=== PATIENT | female | born 1970 | race Caucasian/White ===

== ENCOUNTER → 2017-11-22 | Outpatient (REF) | payer BC, OTHER ==
[2017-11-22 14:38] LABS: VITAMIN B12 LEVEL 487 PG/ML (247-911)
== END ==
LOC: M LABNEURO 12:18
DX: E53.8 Deficiency of other specified B group vitamins (principal)
CPT/HCPCS: 82607

== ENCOUNTER 2018-12-03 14:56 | Inpatient (IN) | payer BC, OTHER ==
[2018-12-03 16:30] VITALS: BP 111/63
[2018-12-03] MEDS ORDERED: MOM 30ML SUSPENSION UDC PO PRN (17:45)
[2018-12-03] MEDS ORDERED: ACETAMINOPHEN TAB 650MG DOSE (2X325MG) PO PRN (17:45)
[2018-12-03] MEDS ORDERED: BISACODYL 10 MG SUPP PR PRN (17:45)
[2018-12-03] MEDS ORDERED: CYAN1000VL IM (18:31)
[2018-12-03] MEDS ORDERED: SUMA50TA2 PO (18:31)
[2018-12-03] MEDS ORDERED: LEVO25TA5 PO (18:31)
[2018-12-03] MEDS ORDERED: ALLE180T33 PO (18:31)
[2018-12-03] MEDS ORDERED: TIZA2CAP PO (18:31)
[2018-12-03] MEDS ORDERED: ALEN70TA74 PO (18:31)
[2018-12-03] MEDS ORDERED: ASPI81CH33 PO (18:38)
[2018-12-03] MEDS ORDERED: CLOP75TA2 PO (18:38)
[2018-12-03] MEDS ORDERED: [UNRECOGNIZED DRUG - CODE] AS (18:38)
[2018-12-03] MEDS ORDERED: ATOR80TA59 PO (18:38)
[2018-12-03] MEDS ORDERED: ACET1TAB55 PO (18:38)
[2018-12-03] MEDS ORDERED: AUGM875T28 PO (18:38)
[2018-12-03 20:00] VITALS: BP 106/57
[2018-12-03] MEDS: ATORVASTATIN 20 MG TAB PO SCH (20:51)
[2018-12-03] MEDS: ENOXAPARIN 40 MG/0.4 ML SYRINGE (J1650) SC SCH (20:51)
[2018-12-03] MEDS: DOCUSATE SODIUM 100 MG CAP PO SCH (20:51)
[2018-12-03] MEDS: AUGMENTIN 875 MG TAB GT SCH (20:51)
[2018-12-03] MEDS: CIPROFLOXACIN 0.3% OPHTH SOLN 2.5ML XX SCH (20:52)
[2018-12-03] MEDS: PANTOPRAZOLE 40MG TAB (PROTONIX) PO SCH (20:54)
[2018-12-04 06:00] VITALS: BP 114/52
[2018-12-04] MEDS ORDERED: LEVOTHYROXINE 25MCG TABLET (0.025MG) PO SCH (06:00)
[2018-12-04 07:14] LABS: BASO % 0.3 % (0.0-1.0); EOS # 0.2 10^3/uL (0.0-0.50); HEMATOCRIT 36.1 % (36.0-47.0); HEMOGLOBIN 11.6 g/dl (12.0-15.5); LYMPH # 1.3 10^3/uL (1.5-4.5); MEAN CORPUSCULAR HEMOGLOBIN 30.6 pg (27.0-33.0); MEAN CORPUSCULAR HGB CONC 32.1 g/dl (32.0-36.5); MEAN CORPUSCULAR VOLUME 95.3 fl (80.0-96.0); MONO # 0.7 10^3/uL (0.0-0.8); MONO % 10.6 % (0.0-5.0); NEUTROPHILS # 4.1 10^3/uL (1.8-7.7); NEUTROPHILS % 64.6 % (36.0-66.0); PLATELET COUNT, AUTOMATED 267 10^3/uL (150-450); RED BLOOD COUNT 3.79 10^6/uL (4.00-5.40); WHITE BLOOD COUNT 6.3 10^3/uL (4.0-10.0)
[2018-12-04 07:38] LABS: ALBUMIN 3.2 GM/DL (3.2-5.2); ALT/SGPT 70 U/L (12-78); BILIRUBIN,TOTAL 0.3 MG/DL (0.2-1.0); BLOOD UREA NITROGEN 13 MG/DL (7-18); CALCIUM LEVEL 8.7 MG/DL (8.5-10.1); CARBON DIOXIDE LEVEL 30 MEQ/L (21-32); CHLORIDE LEVEL 107 MEQ/L (98-107); CREATININE FOR GFR 0.64 MG/DL (0.55-1.30); GLOMERULAR FILTRATION RATE > 60.0 (>58); GLUCOSE, FASTING 84 MG/DL (70-100); POTASSIUM SERUM 3.9 MEQ/L (3.5-5.1); SODIUM LEVEL 143 MEQ/L (136-145); TOTAL PROTEIN 6.3 GM/DL (6.4-8.2)
[2018-12-04 08:20] LABS: APPEARANCE, URINE CLEAR (CLEAR); BACTERIA, URINE AUTO NEGATIVE (NEGATIVE); BILIRUBIN, URINE AUTO NEGATIVE (NEGATIVE); BLOOD, URINE BLOOD NEGATIVE (NEGATIVE); COLOR, URINE YELLOW (YELLOW); GLUCOSE, URINE (UA) AUTO NEGATIVE (NEGATIVE); KETONE, URINE AUTO NEGATIVE (NEGATIVE); LEUKOCYTE ESTERASE, URINE AUTO NEGATIVE (NEGATIVE); MUCUS, URINE SMALL (NEGATIVE); NITRITE, URINE AUTO NEGATIVE (NEGATIVE); PROTEIN, URINE AUTO NEGATIVE (NEGATIVE); RBC, URINE AUTO 0 /HPF (0-3); SPECIFIC GRAVITY URINE AUTO 1.014 (1.002-1.035); SQUAMOUS EPITHELIAL CELL UR AU 0 /HPF (0-6); WBC, URINE AUTO 1 /HPF (0-3)
[2018-12-04] MEDS: ASPIRIN 81 MG CHEW TABLET PEG SCH (08:55)
[2018-12-04] MEDS: AUGMENTIN 875 MG TAB GT SCH ×2 (08:55→20:14)
[2018-12-04] MEDS: DOCUSATE SODIUM 100 MG CAP PO SCH ×2 (08:56→20:14)
[2018-12-04] MEDS: CLOPIDOGREL 75 MG TAB PO SCH (08:56)
[2018-12-04] MEDS: PANTOPRAZOLE 40MG TAB (PROTONIX) PO SCH (08:56)
[2018-12-04] MEDS: CIPROFLOXACIN 0.3% OPHTH SOLN 2.5ML XX SCH ×2 (08:56→20:14)
[2018-12-04] MEDS: LEVOTHYROXINE 12.5MCG PER 1/2 TAB (0.0125MG) PO SCH (11:44)
--- NOTE | 2018-12-04 12:58 | CR.PDOC ---
General Date of Consultation: Dec 04, 2018 Consultation CONSULTATION REPORT FOR: Dr Fritz REASON FOR CONSULTATION: Medical Management ATTENDING: Dr. Brittney English PCP. None HPI: 48year old F transferred from [facility] to [facility] related to ischemic CVA 11/26/18. The morning of admission the pt was noted with AMS, possible rt sided weakness. CTH indicated Lt MCA occlusion, the pt was outside window for TPA. S/P thrombectomy. MRI brain 11/27/18 left tempo parietal CVA no hemorrhagic transformation. AZUL 12/03 EF 60-65%, no thrombus, PFO present with Left to Rt shunt. Loop recorder placed as per Cardiology. The pt was treated with Amoxicillin and Cipro otic drops for Left OM during her hospitalization at [facility]. XR Foot S/P fall indicated non displaced third Metatarsal fracture. The pt was transferred to [facility] Dr Fritz, 12/03/18. The pt is OOB to chair. She states she has difficulty getting words out and has been forgetful. Denies any fevers, chills, weakness, fatigue, Headache, Chest Pain, Shortness of breath, cough, palpitations, abdominal pain, N/V/D or changes in bowel or bladder habits. PMHx: ischemic CVA AZUL 12/03 EF 60-65%, no thrombus, PFO present with Left to Rt shunt. Loop recorder placed 11/28/18. pernicious anemia, monthly B12 injections. migraine AVILES. Follows with [facility], Dr Corado. Jose's disease/hypothyroid. Follows with Endocrine [facility] A1c 5.1 TSH WNL. PSHX: denies SOCHX: Resides in: [facility] Marital Status: Kids: 2 Tobacco use: Quit 2009 ETOH: denies FAMHX: Siblings: 1 sister, 2 brothers Alive, well Children: Alive, well Unexpected deaths due to medical reasons: None. ROS: As noted in HPI, otherwise 11pt ROS of systems reviewed and unremarkable. PE: GEN: 48yoF, appears stated age. Well-nourished, well developed. No acute distress. Alert and oriented x 3. Pleasant, interactive. HEENT: Normocephalic, atraumatic. Sclera are nonicteric. Conjunctiva without injection. No facial asymmetry. Moist mucous membranes. CHEST: Regular rate and rhythm, +S1, +S2 LUNGS: Clear to auscultation bilaterally. No wheezes, rales, or rhonchi. Tari athing appears symmetric and easy. No accessory muscle use. ABD: Round, soft, non-tender, non-distended. +Bowel sounds throughout. No rebound or guarding. No costovertebral angle tenderness. EXT: Pulses 2+ bilaterally dorsalis pedis and radial. No lower extremity edema appreciated. SKIN: [place], dry, warm. Capillary refill <2sec. No rashes. NEURO: Alert and oriented x 3. Pt is slow to respond to questions and has difficulty getting words out. Moving UEs and LEs. UC pending. A&P: 48year old F transferred from [facility] to [facility] related to ischemic CVA 11/26/18. The morning of admission the pt was noted with AMS, possible rt sided weakness. CTH indicated Lt MCA occlusion, the pt was outside window for TPA. MRI brain11/27/18 left tempoparietal CVA no hemorrhagic transformation. The pt was treated with Amoxicillin and cipro otic drops for Left OM during her hospitalization at [facility]. XR Foot S/P fall indicated non displaced third Metatarsal fracture. The pt was transferred to [facility] Dr Fritz, 12/03/18. 1. ischemic CVA ASA/Plavix lipitor 80 mg daily F/U with PCP F/U with neurology F/U with Stroke Clinic [facility] F/U with Cardiology [facility] AZUL 12/03 EF 60-65%, no thrombus, PFO present with Left to Rt shunt. Dr Fritz plans to discuss with Cardiology [facility] re recommendations for PFO. Pt states no intervention recommended at this time, outpt F/U. Loop recorder placed 11/28/18. Mgmt as per Dr Lam GATES. PT/OT/ST as per Dr Lam GATES. pain control as per Dr Lam GATES. Bowel care as per Dr Lam GATES. Disposition as per Dr Lam GATES. DVT prophylaxis. Lovenox as per Dr Fritz. Recommended to Avoid weight loss supplements, Pt had been on Qsymia. 2. Rt Foot fracture S/P Fall. Conservative Mgmt recommended as per Orthopedics [facility]. 2 week f/u as outpt with FU XR. 3. Left OM. Pt to finish course of po Augmentin and Cipro Otic. Pt states symptoms are improved. 4. Hypothryoid. Continue Synthroid. TSH WNL [place] 5. GERD. Protonix. Vital Signs/I&O Vital Signs Date Time Temp Pulse Resp B/P (MAP) Pulse Ox O2 Delivery O2 Flow Rate FiO2 12/04/18 06:00 97.8 68 16 114/52 (72) 98 I&O- Last 24 Hours up to 6 AM 12/04/18 06:00 Intake Total 720 ml Balance 720 ml Laboratory Data Labs 24H Laboratory Tests 2 12/04/18 06:45: Immature Granulocyte % (Auto) 0.5, White Blood Count 6.3, Red Blood Count 3.79L, Hemoglobin 11.6L, Hematocrit 36.1, Mean Corpuscular Volume 95.3, Mean Corpuscular Hemoglobin 30.6, Mean Corpuscular Hemoglobin Concent 32.1, Red Cell Distribution Width 13.0, Platelet Count 267, Neutrophils (%) (Auto) 64.6, Lymphocytes (%) (Auto) 21.0L, Monocytes (%) (Auto) 10.6H, Eosinophils (%) (Auto) 3.0, Basophils (%) (Auto) 0.3, Neutrophils # (Auto) 4.1, Lymphocytes # (Auto) 1.3L, Monocytes # (Auto) 0.7, Eosinophils # (Auto) 0.2, Basophils # (Auto) 0.0, Nucleated Red Blood Cells % (auto) 0.0, Anion Gap 6L, Glomerular Filtration Rate > 60.0, Blood Urea Nitrogen 13, Creatinine 0.64, Sodium Level 143, Potassium Level 3.9, Chloride Level 107, Carbon Dioxide Level 30, Calcium Level 8.7, Aspartate Amino Transf (AST/SGOT) 52H, Alanine Aminotransferase (ALT/SGPT) 70, Alkaline Phosphatase 46, Total Bilirubin 0.3, Total Protein 6.3L, Albumin 3.2, Albumin/Globulin Ratio 1.03 12/04/18 07:50: Urine Appearance CLEAR, Urine Color YELLOW, Urine pH 6.0, Urine Specific [place] 1.014, Urine Protein NEGATIVE, Urine Glucose (UA) NEGATIVE, Urine Ketones NEGATIVE, Urine Urobilinogen 2.0H, Urine Bilirubin NEGATIVE, Urine Leukocyte Esterase NEGATIVE, Urine Blood NEGATIVE, Urine Nitrite NEGATIVE, Urine WBC (Auto) 1, Urine RBC (Auto) 0, Urine Hyaline Casts (Auto) 0, Urine Bacteria (Auto) NEGATIVE, Urine Squamous Epithelial Cells 0, Urine Mucus (Auto) SMALL, Urine Sperm (Auto) CBC/BMP Laboratory Tests 12/04/18 06:45 Red Blood Count 3.79 L, Mean Corpuscular Volume 95.3, Mean Corpuscular Hemoglobin 30.6, Mean Corpuscular Hemoglobin Concent 32.1, Red Cell Distribution Width 13.0, Neutrophils (%) (Auto) 64.6, Lymphocytes (%) (Auto) 21.0 L, Monocytes (%) (Auto) 10.6 H, Eosinophils (%) (Auto) 3.0, Basophils (%) (Auto) 0.3, Neutrophils # (Auto) 4.1, Lymphocytes # (Auto) 1.3 L, Monocytes # (Auto) 0.7, Eosinophils # (Auto) 0.2, Basophils # (Auto) 0.0, Calcium Level 8.7, Aspartate Amino Transf (AST/SGOT) 52 H, Alanine Aminotransferase (ALT/SGPT) 70, Alkaline Phosphatase 46, Total Bilirubin 0.3, Total Protein 6.3 L, Albumin 3.2 Microbiology Microbiology 12/04/18 Urine Culture, Received Pending Allergies Coded Allergies: No Known Allergies (Unverified , 12/03/18) Home Medications Scheduled (Aspirin 81 Low Dose) 81 Mg Chw, 81 MG PO DAILY, (Reported) PRESCRIBED AT DISCHARGE FROM [facility] [[email or web address] 12/03/18 (Otovel 0.3-0.025 %) 1 Niles Niles, 1 NILES BID, (Reported) FOR 7 DAYS; PRESCRIBED AT DISCHARGE FROM [facility] [[email or web address]] 12/03/18 Alendronate Sodium (Alendronate Sodium) 70 Mg Tab, 70 MG PO QWEEK, (Reported) HOME MED; SUNDAYS Aspirin (Childrens Aspirin) 81 Mg Chew, 81 MG PEG DAILY, #30 Atorvastatin Calcium (Atorvastatin Calcium) 80 Mg Tab, 80 MG PO DAILY, (Reported) PRESCRIBED AT DISCHARGE FROM [facility] [[email or web address]] 12/03/18 Atorvastatin Calcium (Atorvastatin Calcium) 20 Mg Tab, 80 MG PO QHS, #30 Clopidogrel Bisulfate (Clopidogrel) 75 Mg Tab, 75 MG PO DAILY, (Reported) PRESCRIBED AT DISCHARGE FROM [facility] [[email or web address]] 12/03/18 Clopidogrel Bisulfate (Clopidogrel) 75 Mg Tab, 75 MG PO DAILY, #11 stop taking after 11 doses Cyanocobalamin (Cyanocobalamin) 1,000 Mcg/1 Ml Inj, 1,000 MCG IM MTHLY, (Reported) HOME MED Levothyroxine Sodium (Synthroid) 25 Mcg Tab, 12.5 MCG PO DAILY, (Reported) HOME MED Pantoprazole Sodium (Pantoprazole Sodium) 40 Mg Tab, 40 MG PO DAILY, #30 Scheduled PRN Acetaminophen (Acetaminophen) 325 Mg Tab, 650 MG PO Q6H PRN for PAIN, (Reported) PRESCRIBED AT DISCHARGE FROM [facility] [[email or web address]] 12/03/18 Fexofenadine Hydrochloride (Kathryn Allergy) 180 Mg Tab, 180 MG PO DAILY PRN for ALLERGIES, (Reported) HOME MED Sumatriptan Succinate (Sumatriptan Succinate) 50 Mg Tab, 50 MG PO DAILY PRN for HEADACHE, (Reported) HOME MED Cris Randhawa Dec 04, 2018 11:04
[2018-12-04 14:00] VITALS: BP 113/52
--- NOTE | 2018-12-04 14:32 | HPEPDOC ---
Drier Feeder Note DATE OF ADMISSION: Dec 03, 2018 at 16:30 SOURCE OF ADMISSION INFORMATION: [facility] records and patient CHIEF COMPLAINT: stroke HISTORY OF PRESENT ILLNESS: 48F pmh Anemia, possible MS, Hahimotoss disease, Migraines who presented to [facility] on 11/26/18 with right sided weakness with imaging positive for a left MCA occlusion and transferred to [facility] where she underwent a mechanical thrombectomy. She was then started on Aspirin and Plavix. Repeat MRI on 11/27/18 showed acute infarct in the left temporoparietal and frontal regions and left putamen. No hemorrhagic transformation is seen. AZUL on 11/27/18 showed LVEF 60-65%..large PFOnon complex (<4mm), atherosclerotic plaque located in the descending aorta and US lower extremities were negative for DVT. Patient later had a Loop recorder placed by Dr. Roth on 12/01/18 for suspected cryptogenic Afib. Per patient she was told she would not be a surgical candidate for PFO closure at this time. She also had right foot swelling and pain for which Xrays revealed, Transverse 3rd metatarsal base fracture. No other acute fracture or dislocation seen. She was evaluated by orthopedics and made WBAT with post-op shoe. She also developed left otitis media with effusion and started on Augmentin and Ciprodex drops. She was evaluated by therapy, found to have gait and ADLs impairments and deemed medically appropriate for discharge to [facility] on 12/03/18. REVIEW OF SYSTEMS: The following is a completed review of systems and has been reviewed. Review of systems otherwise unremarkable. PAIN: Patient self reports mild right foot pain EYES: Negative for recent vision changes EARS, NOSE, & THROAT: +otitis media CARDIOVASCULAR: denies chest pain or palpitations PULMONARY: Negative. Denies shortness of breath GASTROINTESTINAL: Negative for diarrhea/constipation GENITOURINARY: Negative for dysuria MUSCULOSKELETAL: right foot fracture NEUROLOGICAL:+RUE weakness and aphasia SKIN: chest wall +Loop recorder PSYCHIATRIC: Unremarkable All other review of systems found to be negative. PAST MEDICAL HISTORY: per HPI PAST SURGICAL HISTORY: s/p thrombectomy ALLERGIES: Please see below. MEDICATIONS: Please see below. 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 GENERAL: Pleasant and cooperative. No acute distress. HEENT: PERRL. Extraocular movements intact. Clear conjunctiva CARDIOVASCULAR: Regular rate and rhythm. No murmurs, rubs, or gallops, +Loop recorder incision LUNGS: Clear to auscultation bilaterally. No wheezes. No rhonchi ABDOMEN: Soft, nontender, nondistended. Positive bowel sounds. Normal active bowel sounds NEUROLOGICAL: Alert and oriented times three. Cranial nerves II through XII grossly intact. Sensation grossly intact in all 4 extremities to light touch EXTREMITIES: 4/ 5 RUE with +pronator drift 5/5 left UE 5-\5 strength right lower extremity. 5/5 strength in left lower extremity. reflexes 2+ biceps, biceps brachialis and patella no anomia, +syntactical errors, mild fluency impairment SKIN: +Loop recorder incision IMAGING: Imaging documentation personally reviewed by record FUNCTIONAL STATUS: Premorbid: Independent with all activities of daily life as well as mobility On Admission: Requiring assistance with dressing, brushing teeth, min asssit for functional trasnfers GOALS: Mod-I without AD ambulation and stairs, Independent with dressing, bathing, toileting, medical optimization, family training, assess for DME needs ASSESSMENT:48-year-old F with past medical history of Migraines and possible MS who presents status post left MCA stroke s/p thrombectomy PLAN: 1. Rehab: PT/OT, COMPUTERIZED MILL RECORDER assess for DME needs 2. Neuro: s/p right MCA infarct with thrombectomy- c/u ASA and Plavix dual treatment for 3 weeks, stop Plavix 12/19/18 and then just c/u ASA -c/u statin therapy, will start Fluoxetine for motor recovery -LOOP recorder in place- f/u with Dr. Roth -possible MS? f/u with neurology 3. Cardio: + large PFO on recent ECHO, unclear why patient not a surgical candidate, c/u ASA/Plavix and statin 4. resp: stable 5. Endo: pmh hypothryoidism c/u SYnthroid 6. GI ppx: Protonix 7.DVT ppx: recent Dopplers negative for DVT, c/u Lovenox 8. Ortho: left MT fracture WBAT will need ortho f/u in 2 weeks 9. Dispo: TBD POST ADMISSION PHYSICIAN EVALUATION: Medical and functional status: Description of medical status, medical assessment: As above. Rehabilitation diagnosis and current and prior cold morbid medical conditions as above. Risk of complications and plans to mitigate them as above. Description of functional status current status is as above. Prior status as above. Status compared to preadmission: There are no clinically significant differences between the patient's current status and the information described on the preadmission screening document. Treatment plan anticipated: Treatment plan is as described above. Required disciplines including physical therapy, occupational therapy, others as noted above Intensity of services: 3 hours a day, 6 days a week. Special considerations: There are no specific special or safety considerations that would likely preclude immediate implementation of an intensive rehabilitation program or subsequently influence the plan of care ATTESTATION: Considering all the information above, it is my best judgment that this patient requires intensive rehabilitation therapy as described above and an inpatient hospital environment due to the complexity of nursing, medical, and rehabilitation needs required by the patient. Furthermore, this patient can reasonably be expected to participate in an benefit from an inpatient rehabilitation stay with an interdisciplinary team approach to the delivery of rehabilitation care under the direction and supervision of rehabilitation physician PROGNOSIS: Excellent ESTIMATED LENGTH OF STAY:7-10 days. PROJECTED DISCHARGE DESTINATION: Home with family support and any durable medical equipment required to increase functional safety and mobility. TIME SPENT COUNSELING AND COORDINATING INITIAL CARE: Greater than 70 minutes. Vital Signs Vital Sign - Last 24 Hours 12/03/18 12/03/18 12/04/18 16:30 20:00 06:00 Temp 97.2 97.1 97.8 Pulse 67 71 68 Resp 16 17 16 B/P (MAP) 111/63 (79) 106/57 (73) 114/52 (72) Pulse Ox 100 100 98 Laboratory Data CBC/BMP Laboratory Tests 12/04/18 06:45 Red Blood Count 3.79 L, Mean Corpuscular Volume 95.3, Mean Corpuscular Hemoglobin 30.6, Mean Corpuscular Hemoglobin Concent 32.1, Red Cell Distribution Width 13.0, Neutrophils (%) (Auto) 64.6, Lymphocytes (%) (Auto) 21.0 L, Monocytes (%) (Auto) 10.6 H, Eosinophils (%) (Auto) 3.0, Basophils (%) (Auto) 0.3, Neutrophils # (Auto) 4.1, Lymphocytes # (Auto) 1.3 L, Monocytes # (Auto) 0.7, Eosinophils # (Auto) 0.2, Basophils # (Auto) 0.0, Calcium Level 8.7, Aspartate Amino Transf (AST/SGOT) 52 H, Alanine Aminotransferase (ALT/SGPT) 70, Alkaline Phosphatase 46, Total Bilirubin 0.3, Total Protein 6.3 L, Albumin 3.2 Labs 24H Laboratory Tests 2 12/04/18 06:45: Immature Granulocyte % (Auto) 0.5, White Blood Count 6.3, Red Blood Count 3.79L, Hemoglobin 11.6L, Hematocrit 36.1, Mean Corpuscular Volume 95.3, Mean Corpuscular Hemoglobin 30.6, Mean Corpuscular Hemoglobin Concent 32.1, Red Cell Distribution Width 13.0, Platelet Count 267, Neutrophils (%) (Auto) 64.6, Lymphocytes (%) (Auto) 21.0L, Monocytes (%) (Auto) 10.6H, Eosinophils (%) (Auto) 3.0, Basophils (%) (Auto) 0.3, Neutrophils # (Auto) 4.1, Lymphocytes # (Auto) 1.3L, Monocytes # (Auto) 0.7, Eosinophils # (Auto) 0.2, Basophils # (Auto) 0.0, Nucleated Red Blood Cells % (auto) 0.0, Anion Gap 6L, Glomerular Filtration Rate > 60.0, Blood Urea Nitrogen 13, Creatinine 0.64, Sodium Level 143, Potassium Level 3.9, Chloride Level 107, Carbon Dioxide Level 30, Calcium Level 8.7, Aspartate Amino Transf (AST/SGOT) 52H, Alanine Aminotransferase (ALT/SGPT) 70, Alkaline Phosphatase 46, Total Bilirubin 0.3, Total Protein 6.3L, Albumin 3.2, Albumin/Globulin Ratio 1.03 12/04/18 07:50: Urine Appearance CLEAR, Urine Color YELLOW, Urine pH 6.0, Urine Specific [place] 1.014, Urine Protein NEGATIVE, Urine Glucose (UA) NEGATIVE, Urine Ketones NEGATIVE, Urine Urobilinogen 2.0H, Urine Bilirubin NEGATIVE, Urine Leukocyte Esterase NEGATIVE, Urine Blood NEGATIVE, Urine Nitrite NEGATIVE, Urine WBC (Auto) 1, Urine RBC (Auto) 0, Urine Hyaline Casts (Auto) 0, Urine Bacteria (Auto) NEGATIVE, Urine Squamous Epithelial Cells 0, Urine Mucus (Auto) SMALL, Urine Sperm (Auto) 12/04/18 11:55: Bedside Glucose (Misc Panel) 87 FSBS Laboratory Tests Test 12/04/18 11:55 Range/Units Bedside Glucose (Misc Panel) 87 70-105 MG/DL Microbiology Microbiology 12/04/18 Urine Culture, Received Pending Home Medications Scheduled (Aspirin 81 Low Dose) 81 Mg Chw, 81 MG PO DAILY, (Reported) PRESCRIBED AT DISCHARGE FROM [facility] 12/03/18 (Otovel 0.3-0.025 %) 1 Niles Niles, 1 NILES BID, (Reported) FOR 7 DAYS; PRESCRIBED AT DISCHARGE FROM [facility] 12/03/18 Alendronate Sodium (Alendronate Sodium) 70 Mg Tab, 70 MG PO QWEEK, (Reported) HOME MED; SUNDAYS Amoxicillin/Clavulanate Potas (Augmentin 875-125 mg) 1 Tab Tab, 1 TAB PO BID, (Reported) FOR 5 DAYS; PRESCRIBED AT DISCHARGE FROM [facility] 12/03/18 Atorvastatin Calcium (Atorvastatin Calcium) 80 Mg Tab, 80 MG PO DAILY, (Reported) PRESCRIBED AT DISCHARGE FROM [facility] 12/03/18 Clopidogrel Bisulfate (Clopidogrel) 75 Mg Tab, 75 MG PO DAILY, (Reported) PRESCRIBED AT DISCHARGE FROM [facility] 12/03/18 Cyanocobalamin (Cyanocobalamin) 1,000 Mcg/1 Ml Inj, 1,000 MCG IM MTHLY, (Reported) HOME MED Levothyroxine Sodium (Synthroid) 25 Mcg Tab, 12.5 MCG PO DAILY, (Reported) HOME MED Scheduled PRN Acetaminophen (Acetaminophen) 325 Mg Tab, 650 MG PO Q6H PRN for PAIN, (Reported) PRESCRIBED AT DISCHARGE FROM [facility] 12/03/18 Fexofenadine Hydrochloride (Kathryn Allergy) 180 Mg Tab, 180 MG PO DAILY PRN for ALLERGIES, (Reported) HOME MED Sumatriptan Succinate (Sumatriptan Succinate) 50 Mg Tab, 50 MG PO DAILY PRN for HEADACHE, (Reported) HOME MED Tizanidine Hydrochloride (Tizanidine HCl) 2 Mg Cap, 2 MG PO TID PRN for MUSCLE SPASMS, (Reported) HOME MED Allergies Coded Allergies: No Known Allergies (Unverified , 12/03/18) JOAQUIN COONEY MD Dec 04, 2018 14:32
--- NOTE | 2018-12-04 15:04 | NUR ---
Pt's swallow function is wnl. Please continue regular diet and thin liquids. No dysphagia tx. Addendum: 12/04/18 at 1504 by SHERI VILA [facility] Amended: Links added.
--- NOTE | 2018-12-04 15:09 | NUR ---
Pt demonstrates mild anomia during conversation w/ stuttering as a secondary behavior. Also reports she switches letters when she texts, although this was not observed during writing tasks. Listening comprehension wnl. Recommend language therapy targeting naming exercises and will continue to probe for writing deficits. Addendum: 12/04/18 at 1510 by SHERI VILA [facility] Amended: Links added.
--- NOTE | 2018-12-04 15:13 | NUR ---
Pt w/ mild cognitive impairment. Deficits noted in working memory, judgement, and mental flexibility. Pt told me she was anxious throughout evaluation. She answered impulsively but self-corrected often. Pt was independent w/ ADL's prior to admission and was working as a [employer] for the [employer] Cognitive tx indicated for the above skills. Addendum: 12/04/18 at 1515 by SHERI VILA [facility] Amended: Links added.
[2018-12-04 20:00] VITALS: BP 106/56
[2018-12-04] MEDS: ATORVASTATIN 20 MG TAB PO SCH (20:14)
[2018-12-04] MEDS: ENOXAPARIN 40 MG/0.4 ML SYRINGE (J1650) SC SCH (20:14)
[2018-12-05 06:00] VITALS: BP 109/57
[2018-12-05] MEDS: LEVOTHYROXINE 12.5MCG PER 1/2 TAB (0.0125MG) PO SCH (06:09)
[2018-12-05] MEDS: CIPROFLOXACIN 0.3% OPHTH SOLN 2.5ML XX SCH ×2 (09:00→20:58)
--- NOTE | 2018-12-05 10:33 | IPNPDOC ---
Date Seen The patient was seen on 12/05/18. Progress Note HPI: 48year old F transferred from [facility] to [facility] related to ischemic CVA 11/26/18. The morning of admission the pt was noted with AMS, possible rt sided weakness. CTH indicated Lt MCA occlusion, the pt was outside window for TPA. MRI brain 11/27/18 left tempo parietal CVA no hemorrhagic transformation. AZUL 12/03 EF 60-65%, no thrombus, PFO present with Left to Rt shunt. Loop recorder placed as per Cardiology. The pt was treated with Amoxicillin and Cipro otic drops for Left OM during her hospitalization at [facility]. XR Foot S/P fall indicated non displaced third Metatarsal fracture. The pt was transferred to [facility] Dr Fritz, 12/03/18. The pt is sitting up in bed. No complaints today. Denies any fevers, chills, weakness, fatigue, Headache, Chest Pain, Shortness of breath, cough, palpitations, abdominal pain, N/V/D or changes in bowel or bladder habits. PMHx: ischemic CVA AZUL 12/03 EF 60-65%, no thrombus, PFO present with Left to Rt shunt. Loop recorder placed 11/28/18. pernicious anemia, monthly B12 injections. migraine AVILES. Follows with [facility], Dr Corado. Jose's disease/hypothyroid. Follows with [facility] [place] A1c 5.1 TSH WNL. PSHX: denies PE: GEN: 48yoF, appears stated age. Well-nourished, well developed. No acute distress. Alert and oriented x 3. Pleasant, interactive. HEENT: Normocephalic, atraumatic. Sclera are nonicteric. Conjunctiva without injection. No facial asymmetry. Moist mucous membranes. CHEST: Regular rate and rhythm, +S1, +S2 LUNGS: Clear to auscultation bilaterally. No wheezes, rales, or rhonchi. Breathing appears symmetric and easy. No accessory muscle use. ABD: Round, soft, non-tender, non-distended. +Bowel sounds throughout. No rebound or guarding. No costovertebral angle tenderness. EXT: Pulses 2+ bilaterally dorsalis pedis and radial. No lower extremity edema appreciated. SKIN: [place], dry, warm. No rashes. NEURO: Alert and oriented x 3. Pt is slow to respond to questions and has difficulty getting words out. Moving UEs and LEs. UC 12/03/18 negative. A&P: 48year old F transferred from [facility] to [facility] related to ischemic CVA 11/26/18. The morning of admission the pt was noted with AMS, possible rt sided weakness. CTH indicated Lt MCA occlusion, the pt was outside window for TPA. MRI brain11/27/18 left tempoparietal CVA no hemorrhagic transformation. The pt was treated with Amoxicillin and cipro otic drops for Left OM during her hospitalization at [facility]. XR Foot S/P fall indicated non displaced third Metatarsal fracture. The pt was transferred to [facility] Dr Fritz, 12/03/18. 1. ischemic CVA ASA/Plavix lipitor 80 mg daily F/U with PCP F/U with neurology F/U with Stroke Clinic [facility] F/U with Cardiology [facility] AZUL 12/03 EF 60-65%, no thrombus, PFO present with Left to Rt shunt. Dr Fritz plans to discuss with Cardiology [facility] re recommendations for PFO. Pt states no intervention recommended at this time, outpt F/U. Loop recorder placed 11/28/18. Mgmt as per Dr Lam GATES. PT/OT/ST as per Dr Lam GATES. pain control as per Dr Lam GATES. Bowel care as per Dr Lam GATES. Disposition as per Dr Lam GATES. DVT prophylaxis. Lovenox as per Dr Fritz. Recommended to Avoid weight loss supplements, Pt had been on Qsymia. 2. Rt Foot fracture S/P Fall. Conservative Mgmt recommended as per Orthopedics [facility]. 2 week f/u as outpt with FU XR. 3. Left OM. Pt to finish course of po Augmentin and Cipro Otic. Pt states symptoms are improved. 4. Hypothryoid. Continue Synthroid. TSH WNL [facility] 5. GERD. Protonix. VS, I&O, 24H, Fishbone Vital Signs/I&O Vital Signs Date Time Temp Pulse Resp B/P (MAP) Pulse Ox O2 Delivery O2 Flow Rate FiO2 12/05/18 06:00 97.0 56 17 109/57 (74) 99 I&O- Last 24 Hours up to 6 AM 12/05/18 06:00 Intake Total 1020 ml Output Total 1000 ml Balance 20 ml Laboratory Data 24H LABS Laboratory Tests 2 12/04/18 11:55: Bedside Glucose (Misc Panel) 87 Microbiology Microbiology 12/04/18 Urine Culture - Final, Complete Cris Randhawa Dec 05, 2018 10:33
[2018-12-05] MEDS: ASPIRIN 81 MG CHEW TABLET PEG SCH (10:50)
[2018-12-05] MEDS: PANTOPRAZOLE 40MG TAB (PROTONIX) PO SCH (10:50)
[2018-12-05] MEDS: AUGMENTIN 875 MG TAB GT SCH (10:50)
[2018-12-05] MEDS: DOCUSATE SODIUM 100 MG CAP PO SCH ×2 (10:50→20:58)
[2018-12-05] MEDS: CLOPIDOGREL 75 MG TAB PO SCH (10:50)
--- NOTE | 2018-12-05 12:54 | IPNPDOC ---
PM&R Progress Note DATE OF SERVICE: Dec 05, 2018 Administrative Assistant Receptionist Progress Note Subejctive: Patient seen in gym on [employer] states she feels well and is ready to go home soon. REVIEW OF SYSTEMS: The following is a completed review of systems and has been reviewed. Review of systems otherwise unremarkable. PAIN: Patient self reports mild right foot pain EYES: Negative for recent vision changes EARS, NOSE, & THROAT: +otitis media CARDIOVASCULAR: denies chest pain or palpitations PULMONARY: Negative. Denies shortness of breath GASTROINTESTINAL: Negative for diarrhea/constipation GENITOURINARY: Negative for dysuria MUSCULOSKELETAL: right foot fracture NEUROLOGICAL:+RUE weakness and aphasia SKIN: chest wall +Loop recorder PSYCHIATRIC: Unremarkable All other review of systems found to be negative. PHYSICAL EXAMINATION: VITAL SIGNS: Please see below. GENERAL: Pleasant and cooperative. No acute distress. HEENT: PERRL. Extraocular movements intact. Clear conjunctiva CARDIOVASCULAR: Regular rate and rhythm. No murmurs, rubs, or gallops, +Loop recorder incision LUNGS: Clear to auscultation bilaterally. No wheezes. No rhonchi ABDOMEN: Soft, nontender, nondistended. Positive bowel sounds. Normal active bowel sounds NEUROLOGICAL: Alert and oriented times three. Cranial nerves II through XII grossly intact. Sensation grossly intact in all 4 extremities to light touch EXTREMITIES: 4/ 5 RUE with +pronator drift 5/5 left UE 5-\5 strength right lower extremity. 5/5 strength in left lower extremity. reflexes 2+ biceps, biceps brachialis and patella no anomia, +syntactical errors, mild fluency impairment SKIN: +Loop recorder incision ASSESSMENT:48-year-old F with past medical history of Migraines and possible MS who presents status post left MCA stroke s/p thrombectomy PLAN: 1. Rehab: PT/OT, [employer] ADMINISTRATOR assess for DME needs, independent with ambulation without AD 2. Neuro: s/p right MCA infarct with thrombectomy- c/u ASA and Plavix dual treatment for 3 weeks, stop Plavix 12/19/18 and then just c/u ASA -c/u statin therapy, will start Fluoxetine for motor recovery -LOOP recorder in place- f/u with Dr. Roth -possible MS? f/u with neurology 3. Cardio: + large PFO on recent ECHO, unclear why patient not a surgical candidate, c/u ASA/Plavix and statin-patient instructed tofollow-up with Dr. Roth upon d/c for LOOP recorder and to discuss PFO closure 4. resp: stable 5. Endo: pmh hypothryoidism c/u SYnthroid 6. GI ppx: Protonix 7.DVT ppx: recent Dopplers negative for DVT, c/u Lovenox 8. Ortho: left MT fracture WBAT will need ortho f/u in 2 weeks 9. Dispo: 12/09/18, quickly progressing towards goals Allergies Coded Allergies: No Known Allergies (Unverified , 12/03/18) Vital Signs Vital Signs Date Time Temp Pulse Resp B/P (MAP) Pulse Ox O2 Delivery O2 Flow Rate FiO2 12/05/18 06:00 97.0 56 17 109/57 (74) 99 Microbiology Microbiology 12/04/18 Urine Culture - Final, Complete Current Medications Current Medications Current Medications Acetaminophen (Tylenol Tab) 650 mg Q4HP PRN PO fever/MILD PAIN (PS 1-4); Start 12/03/18 at 17:45 Amoxicillin/ Clavulanate Potassium (Augmentin) 875 mg BID GT Last administered on 12/05/18at 10:50; Start 12/03/18 at 21:00; Stop 12/08/18 at 09:01 Aspirin (Aspirin Chewable) 81 mg DAILY PEG Last administered on 12/05/18at 10:50; Start 12/04/18 at 09:00 Atorvastatin Calcium (Lipitor) 80 mg QHS PO Last administered on 12/04/18at 20:14; Start 12/03/18 at 21:00 Bisacodyl (Dulcolax Suppository) 10 mg DAILYPRN PRN [place] CONSTIPATION; Start 12/03/18 at 17:45 Ciprofloxacin (Ciloxan) 2 drop BID XX ; Start 12/03/18 at 21:00; Stop 12/10/18 at 09:01 Clopidogrel Bisulfate (PLAVix) 75 mg DAILY PO Last administered on 12/05/18at 10:50; Start 12/04/18 at 09:00; Stop 12/19/18 at 08:59 Docusate Sodium (Colace) 100 mg BID PO Last administered on 12/05/18at 10:50; Start 12/03/18 at 21:00 Enoxaparin Sodium (Lovenox) 40 mg QHS SC Last administered on 12/04/18at 20:14; Start 12/03/18 at 21:00 Home Med (Med Rec Complete!) ASDIRECTED XX ; Start 12/03/18 at 18:45; Stop 12/03/18 at 18:49; Status DC Levothyroxine Sodium (Synthroid) 12.5 mcg DAILY@06 PO Last administered on 12/05/18at 06:09; Start 12/04/18 at 06:00 Levothyroxine Sodium (Synthroid) 25 mcg DAILY@06 PO ; Start 12/04/18 at 06:00; Stop 12/04/18 at 09:57; Status DC Magnesium Hydroxide (Milk Of Magnesia) 30 ml DAILYPRN PRN PO CONSTIPATION; Start 12/03/18 at 17:45 Miscellaneous (Unresolved Clarification Entry) SEE LABEL COMMENTS DAILY XX ; Start 12/03/18 at 09:00; Stop 12/04/18 at 08:04; Status DC Miscellaneous (Unresolved Clarification Entry) SEE LABEL COMMENTS DAILY XX ; Start 12/04/18 at 09:00; Stop 12/04/18 at 10:11; Status DC Pantoprazole Sodium (Protonix) 40 mg DAILY PO Last administered on 12/05/18at 10:50; Start 12/03/18 at 09:00 JOAQUIN COOENY MD Dec 05, 2018 12:54
[2018-12-05] MEDS ORDERED: CLOP75TA2 PO (12:57)
[2018-12-05] MEDS ORDERED: PANT40TA3 PO (12:57)
[2018-12-05] MEDS ORDERED: ASPI-286 PEG (12:57)
[2018-12-05] MEDS ORDERED: ATOR1TAB21 PO (12:57)
[2018-12-05 14:00] VITALS: BP 104/62
[2018-12-05 20:00] VITALS: BP 116/72
[2018-12-05] MEDS: ENOXAPARIN 40 MG/0.4 ML SYRINGE (J1650) SC SCH (20:57)
[2018-12-05] MEDS: AUGMENTIN 875 MG TAB PO SCH (20:58)
[2018-12-05] MEDS: ATORVASTATIN 20 MG TAB PO SCH (20:58)
[2018-12-06] MEDS: LEVOTHYROXINE 12.5MCG PER 1/2 TAB (0.0125MG) PO SCH (06:15)
[2018-12-06 06:17] VITALS: BP 100/63
[2018-12-06 06:57] LABS: HEMATOCRIT 35.5 % (36.0-47.0); HEMOGLOBIN 11.1 g/dl (12.0-15.5); MEAN CORPUSCULAR HEMOGLOBIN 29.8 pg (27.0-33.0); MEAN CORPUSCULAR HGB CONC 31.3 g/dl (32.0-36.5); MEAN CORPUSCULAR VOLUME 95.2 fl (80.0-96.0); PLATELET COUNT, AUTOMATED 282 10^3/uL (150-450); RED BLOOD COUNT 3.73 10^6/uL (4.00-5.40); WHITE BLOOD COUNT 6.9 10^3/uL (4.0-10.0)
[2018-12-06] MEDS: AUGMENTIN 875 MG TAB PO SCH ×2 (10:13→20:58)
[2018-12-06] MEDS: PANTOPRAZOLE 40MG TAB (PROTONIX) PO SCH (10:13)
[2018-12-06] MEDS: CIPROFLOXACIN 0.3% OPHTH SOLN 2.5ML XX SCH ×3 (10:13→20:59)
[2018-12-06] MEDS: ASPIRIN 81 MG CHEW TABLET PEG SCH (10:13)
[2018-12-06] MEDS: DOCUSATE SODIUM 100 MG CAP PO SCH ×2 (10:13→20:56)
[2018-12-06] MEDS: CLOPIDOGREL 75 MG TAB PO SCH (10:13)
[2018-12-06] MEDS ORDERED: CLOP75TA2 PO (11:18)
--- NOTE | 2018-12-06 11:32 | IPNPDOC ---
PM&R Progress Note DATE OF SERVICE: Dec 06, 2018 Lithographed Plate Inspector Progress Note Subejctive: Patient seen in room asking to go home before Sunday stating she feels safe and ready. REVIEW OF SYSTEMS: The following is a completed review of systems and has been reviewed. Review of systems otherwise unremarkable. PAIN: Patient self reports mild right foot pain EYES: Negative for recent vision changes EARS, NOSE, & THROAT: +otitis media CARDIOVASCULAR: denies chest pain or palpitations PULMONARY: Negative. Denies shortness of breath GASTROINTESTINAL: Negative for diarrhea/constipation GENITOURINARY: Negative for dysuria MUSCULOSKELETAL: right foot fracture NEUROLOGICAL:+RUE weakness and aphasia (improving) SKIN: chest wall +Loop recorder PSYCHIATRIC: Unremarkable All other review of systems found to be negative. PHYSICAL EXAMINATION: VITAL SIGNS: Please see below. GENERAL: Pleasant and cooperative. No acute distress. HEENT: PERRL. Extraocular movements intact. Clear conjunctiva CARDIOVASCULAR: Regular rate and rhythm. No murmurs, rubs, or gallops, +Loop recorder incision LUNGS: Clear to auscultation bilaterally. No wheezes. No rhonchi ABDOMEN: Soft, nontender, nondistended. Positive bowel sounds. Normal active bowel sounds NEUROLOGICAL: Alert and oriented times three. Cranial nerves II through XII grossly intact. Sensation grossly intact in all 4 extremities to light touch EXTREMITIES: 4/ 5 RUE with +pronator drift 5/5 left UE 5-\5 strength right lower extremity. 5/5 strength in left lower extremity. reflexes 2+ biceps, biceps brachialis and patella no anomia, +syntactical errors, mild fluency impairment SKIN: +Loop recorder incision ASSESSMENT:48-year-old F with past medical history of Migraines and possible MS who presents status post left MCA stroke s/p thrombectomy PLAN: 1. Rehab: PT/OT, [employer] assess for DME needs, independent with ambulation and ADLs without AD 2. Neuro: s/p right MCA infarct with thrombectomy- c/u ASA and Plavix dual treatment for 3 weeks, stop Plavix 12/19/18 and then just c/u ASA -c/u statin therapy, will start Fluoxetine for motor recovery -LOOP recorder in place- f/u with Dr. Roth -possible MS? f/u with neurology 3. Cardio: + large PFO on recent ECHO, unclear why patient not a surgical candidate, c/u ASA/Plavix and statin-patient instructed to follow-up with Dr. Roth upon d/c for LOOP recorder and to discuss PFO closure 4. resp: stable 5. Endo: pmh hypothryoidism c/u SYnthroid 6. GI ppx: Protonix 7.DVT ppx: recent Dopplers negative for DVT, c/u Lovenox 8. Ortho: left MT fracture WBAT will need ortho f/u in 2 weeks 9. Dispo: 12/07/18, quickly progressing towards goals Allergies Coded Allergies: No Known Allergies (Unverified , 12/03/18) Vital Signs Vital Signs Date Time Temp Pulse Resp B/P (MAP) Pulse Ox O2 Delivery O2 Flow Rate FiO2 12/06/18 06:17 97.0 60 14 100/63 (75) 96 Laboratory Data CBC/BMP Laboratory Tests 12/06/18 06:40 Red Blood Count 3.73 L, Mean Corpuscular Volume 95.2, Mean Corpuscular Hemoglobin 29.8, Mean Corpuscular Hemoglobin Concent 31.3 L, Red Cell Distribution Width 13.0 Labs 24H Laboratory Tests 2 12/06/18 06:40: Nucleated Red Blood Cells % (auto) 0.0 Microbiology Microbiology 12/04/18 Urine Culture - Final, Complete Current Medications Current Medications Current Medications Acetaminophen (Tylenol Tab) 650 mg Q4HP PRN PO fever/MILD PAIN (PS 1-4); Start 12/03/18 at 17:45 Amoxicillin/ Clavulanate Potassium (Augmentin) 875 mg BID GT Last administered on 12/05/18at 10:50; Start 12/03/18 at 21:00; Stop 12/05/18 at 20:33; Status DC Amoxicillin/ Clavulanate Potassium (Augmentin) 875 mg BID PO Last administered on 12/06/18at 10:13; Start 12/05/18 at 21:00; Stop 12/08/18 at 09:01 Aspirin (Aspirin Chewable) 81 mg DAILY PEG Last administered on 12/06/18at 10:13; Start 12/04/18 at 09:00 Atorvastatin Calcium (Lipitor) 80 mg QHS PO Last administered on 12/05/18at 20:58; Start 12/03/18 at 21:00 Bisacodyl (Dulcolax Suppository) 10 mg DAILYPRN PRN [place] CONSTIPATION; Start at 17:45 Ciprofloxacin (Ciloxan) 2 drop BID XX ; Start 12/03/18 at 21:00; Stop 12/10/18 at 09:01 Clopidogrel Bisulfate (PLAVix) 75 mg DAILY PO Last administered on 12/06/18at 10:13; Start 12/04/18 at 09:00; Stop 12/19/18 at 08:59 Docusate Sodium (Colace) 100 mg BID PO Last administered on 12/06/18at 10:13; Start 12/03/18 at 21:00 Enoxaparin Sodium (Lovenox) 40 mg QHS SC Last administered on 12/05/18at 20:57; Start 12/03/18 at 21:00 Home Med (Med Rec Complete!) ASDIRECTED XX ; Start 12/03/18 at 18:45; Stop 12/03/18 at 18:49; Status DC Levothyroxine Sodium (Synthroid) 12.5 mcg DAILY@06 PO Last administered on 12/06/18at 06:15; Start 12/04/18 at 06:00 Levothyroxine Sodium (Synthroid) 25 mcg DAILY@06 PO ; Start 12/04/18 at 06:00; Stop 12/04/18 at 09:57; Status DC Magnesium Hydroxide (Milk Of Magnesia) 30 ml DAILYPRN PRN PO CONSTIPATION; Start 12/03/18 at 17:45 Miscellaneous (Unresolved Clarification Entry) SEE LABEL COMMENTS DAILY XX ; Start 12/03/18 at 09:00; Stop 12/04/18 at 08:04; Status DC Miscellaneous (Unresolved Clarification Entry) SEE LABEL COMMENTS DAILY XX ; Start 12/04/18 at 09:00; Stop 12/04/18 at 10:11; Status DC Pantoprazole Sodium (Protonix) 40 mg DAILY PO Last administered on 12/06/18at 10:13; Start 12/03/18 at 09:00 JOAQUIN COONEY MD Dec 06, 2018 11:32
[2018-12-06 16:55] VITALS: BP 100/63
[2018-12-06 20:00] VITALS: BP 108/59
[2018-12-06] MEDS: ATORVASTATIN 20 MG TAB PO SCH (20:56)
[2018-12-06] MEDS: ENOXAPARIN 40 MG/0.4 ML SYRINGE (J1650) SC SCH (20:56)
[2018-12-07] MEDS: LEVOTHYROXINE 12.5MCG PER 1/2 TAB (0.0125MG) PO SCH (05:47)
[2018-12-07 06:00] VITALS: BP 101/61
[2018-12-07] MEDS: CIPROFLOXACIN 0.3% OPHTH SOLN 2.5ML XX SCH (09:00)
[2018-12-07] MEDS: DOCUSATE SODIUM 100 MG CAP PO SCH (09:49)
[2018-12-07] MEDS: ASPIRIN 81 MG CHEW TABLET PEG SCH (09:49)
[2018-12-07] MEDS: PANTOPRAZOLE 40MG TAB (PROTONIX) PO SCH (09:49)
[2018-12-07] MEDS: AUGMENTIN 875 MG TAB PO SCH (09:49)
[2018-12-07] MEDS: CLOPIDOGREL 75 MG TAB PO SCH (09:49)
--- NOTE | 2018-12-24 21:46 | PMRDS ---
DATE OF ADMISSION: 12/03/2018 DATE OF DISCHARGE: 12/07/2018 CHIEF COMPLAINT/DISCHARGE DIAGNOSIS: Stroke. 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, where she underwent a mechanical thrombectomy. She was started on aspirin and Plavix. Repeat MRI on 11/27/2018 showed "acute infarct in the left temporoparietal and frontal regions and left putamen. No hemorrhagic transformation is seen." Transesophageal echocardiogram (AZUL) on 11/27/2018 showed left ventricular ejection fraction (LVEF) 65%... large PFO... noncomplex, less than 4 mm, atherosclerotic plaque located in the descending aorta." An ultrasound of the lower extremities was negative for deep vein thrombosis (DVT). Patient later had a loop recorded placed by Dr. Roth on 12/01/2018 for suspected cryptogenic atrial fibrillation. Per patient, she was told she would not be a surgical candidate for patent foramen ovale (PFO) closure at this time. She also had right foot swelling and pain, for which x-rays revealed "transverse 3rd metatarsal base fracture. No other acute fracture or dislocation seen." She was evaluated by orthopedics and made weightbearing as tolerated with postoperative shoe. She also developed left otitis media and effusion and started on Augmentin and Ciprodex drops. She was evaluated by therapy and found to have gait and activities of daily living (ADL) impairment and deemed medically appropriate for discharge to acute rehabilitation unit (ARU) on 12/03/2018. PAST MEDICAL HISTORY: As per history of present illness (HPI). HOSPITAL COURSE: Patient was admitted and enrolled in a comprehensive physical therapy (PT), occupational therapy (OT), speech/language pathology program. She was continued on aspirin and remained on Plavix, for which she was supposed to remain on for a total of 3 weeks. She was started on fluoxetine for motor recovery. Repeat Dopplers were negative for DVT, and she was maintained on Lovenox. She remained weightbearing as tolerated for her left metatarsal fracture and overall made quick gains in therapy and deemed functionally and medically stable to return home sooner than anticipated. DISCHARGE MEDICATIONS: Aspirin, atorvastatin, Plavix, Protonix, Tylenol, alendronate, ciprofloxacin, eardrops, vitamin B12, Synthroid, sumatriptan. FUNCTIONAL HISTORY: Upon discharge, patient was independent in all functional transfers without the use of an assistive device and independent with her ADLs with minimal assist with memory and was discharged home with outpatient followup.
== END 2018-12-07 10:29 | disposition home or self-care (01) | DRG 58 ==
LOC: M PM&R 16:30
PROVIDERS: ADMIT Physical Medicine & Rehabilitation; ATTEND Physical Medicine & Rehabilitation
DX: I69.353 Hemiplegia and hemiparesis following cerebral infarction affecting right non-dominant side (principal); G35 Multiple sclerosis; D51.0 Vitamin B12 deficiency anemia due to intrinsic factor deficiency; G43.909 Migraine, unspecified, not intractable, without status migrainosus; E06.3 Autoimmune thyroiditis; H66.92 Otitis media, unspecified, left ear; K21.9 Gastro-esophageal reflux disease without esophagitis; Z79.899 Other long term (current) drug therapy; Z79.82 Long term (current) use of aspirin; Z87.891 Personal history of nicotine dependence

== ENCOUNTER → 2019-12-09 | Outpatient (CLI) | payer BC, OTHER ==
[~2019-12-09] MED LIST: ACET1TAB55 PO; ALEN70TA74 PO; ALLE180T33 PO; ASPI-286 PEG; ASPI81CH33 PO; ATOR1TAB21 PO; ATOR80TA59 PO; AUGM875T28 PO; CLOP75TA2 PO; CYAN1000VL IM; LEVO25TA5 PO; PANT40TA3 PO; SUMA50TA2 PO; TIZA2CAP PO; [UNRECOGNIZED DRUG - CODE] AS
[2019-12-09 14:47] LABS: FOLATE 17.1 NG/ML
== END ==
LOC: M PLALAB 12:17
PROVIDERS: ATTEND Psychiatry & Neurology Neurology
DX: E53.8 Deficiency of other specified B group vitamins (principal)